=== PATIENT | female | born 1960 | race Hispanic/Latino ===

== ENCOUNTER 2017-09-05 16:58 | Emergency (ER) | payer OTHER ==
[~2017-09-05] VITALS: Ht 162.6 cm; Wt 71.2 kg
--- OUTSIDE RECORDS SUMMARY | 2017-09-05 17:01 | XMS REPORT | Clinical Summary ---
Author Author AMA [facility] Address Unknown Phone Unavailable Care Team Providers Care Dental Resident Name Role Phone PCP Unavailable Allergies No Known Allergies Current Medications Prescription Sig. Disp. Refills Start End Date Status Date losartan (COZAAR) 25 MG TAKE 1 TABLET BY MOUTH 30 tablet 5 07/30/19 Active tablet EVERY DAY 15 atorvastatin (LIPITOR) 10 TAKE 1 TABLET BY MOUTH 30 tablet 5 07/30/19 Active MG tablet EVERY DAY 15 metFORMIN (GLUMETZA) 1000 Take 1,000 mg by mouth Active MG (MOD) 24 hr tablet daily with breakfast. ERGOCALCIFEROL, VITAMIN Take 25,000 Units by Active D2, (VITAMIN D2 ORAL) mouth every other day. amoxicillin-clavulanate Take 1 tablet by mouth 2 20 tablet 0 12/10/19 12/20/19 (AUGMENTIN) 875-125 mg (two) times daily for 10 17 17 per tablet days. Active Problems Problem Noted Date Other and unspecified hyperlipidemia 07/14/2011 Overview: Converted from W Diabetes mellitus (HCC) Last Assessment & Plan: Sees Dr. Potts, all labs there. HLD (hyperlipidemia) Vitamin D deficiency Encounters Date Type Specialty Care Team Description 12/09/2016 Office Visit Internal Medicine Ananda Pinedo MD Puncture wound (Primary Dx);Need for Tdap vaccination;Type 2 diabetes mellitus without complication, without long-term current use of insulin (HCC) 12/09/2016 Telephone Internal Medicine Kamila Mata MD triage after 09/04/2016 Immunizations Name Dates Previously Given Next Due Tdap 12/09/2016 Family History Medical History Relation Name Comments Arthritis Father Parkinsonism Father Arthritis Maternal Rheumatoid arthritis Grandmother Arthritis Mother Relation Name Status Comments Brother Alive Daughter Alive Father Alive Maternal Grandmother Mother Alive Son 2 Alive Social History Tobacco Use Types Packs/Day Years Used Date Never Smoker Smokeless Tobacco: Never Used Alcohol Use Drinks/Week oz/Week Comments No Sex Assigned at Date Recorded Not on file Last Filed Vital Signs Vital Sign Reading Time Taken Blood Pressure 110/58 12/09/2016 3:26 PM CDT Pulse 76 12/09/2016 3:26 PM CDT Temperature - - Respiratory Rate 14 12/09/2016 3:26 PM CDT Oxygen Saturation 96% 12/09/2016 3:26 PM CDT Inhaled Oxygen - - Concentration Weight 70.3 kg (154 lb 14.4 oz) 12/09/2016 3:26 PM CDT Height 160 cm (5' 3") 12/09/2016 3:26 PM CDT Body Mass Index 27.44 12/09/2016 3:26 PM CDT Plan of Treatment Health Maintenance Due Date Last Done Comments INFLUENZA VACCINE 01/09/2018 Results Not on fileafter 09/04/2016
[2017-09-05] MEDS ORDERED: IBUPROFEN 600 MG TAB PO STA (18:31)
== END 2017-09-05 18:40 | disposition home or self-care (01) ==
LOC: FSED 16:58
DX: M70.52 Other bursitis of knee, left knee (principal); Z96.652 Presence of left artificial knee joint
CPT/HCPCS: 99283